=== PATIENT | male | born 1975 | race African-American/Black ===

== ENCOUNTER 2016-07-19 15:53 | Day surgery (SDC) | payer BC, MEDICAID ==
[~2016-07-19 15:53] MED LIST: BUPIVACAINE HCL 50 ML VIAL IJ ONE; RINGERS SOLUTION,LACTATED 1,000 ML IV PRN
--- OUTSIDE RECORDS SUMMARY | 2016-07-19 15:56 | XMS REPORT | Continuity of Care Document ---
:1975 Author Organization [facility] [place] [address] Care Team Providers Name Role Phone Unavailable Primary Care Provider Unavailable Source Comments This disclosure is being made pursuant to the [employer] program and maynot contain all information available regarding this patient.[facility] Active Allergies and Adverse Reactions Not on File Current Medications Be aware that medications may not be up to date as of this document. Alwaysverify current medications with the patient. Not on file Active Problems Not on file Social History Tobacco Use Types Packs/Day Years Used Date Never Assessed Plan of Care Health Maintenance Due Date Last Done Comments Retired-Pertussis Vaccine Adult 1995 Retired-Tetanus Vaccine Adult 1995 Retired-INFLUENZA VACCINE 12/21/2014 Results from Last 3 Months Not on file
[2016-07-19 16:11] VITALS: BP 132/94
[2016-07-19] MEDS ORDERED: RINGERS SOLUTION,LACTATED 1,000 ML IV ONE (16:35)
[2016-07-19] MEDS ORDERED: RINGERS SOLUTION,LACTATED 1,000 ML IV PRN (18:02)
--- NOTE | 2016-07-19 18:14 | OR ---
Operative Report - Dictated Report Narrative: OPERATIVE REPORT DATE OF OPERATION: 07/19/2016 PREOPERATIVE DIAGNOSIS: Thrombosed external hemorrhoid. Skin tag POSTOPERATIVE DIAGNOSIS: Large thrombosed external hemorrhoid right posterior quadrant. Healed fissure posterior midline with skin tag OPERATION: Incision and drainage of thrombosed external hemorrhoid. Excision of external skin tag SURGEON: Zenobia Combs MD ANESTHESIA: MAC/local Roberto Elkins CRNA INDICATIONS FOR PROCEDURE: The patient is a 41-year-old male presented to the [facility] emergency room with a thrombosed external hemorrhoid. There is no surgeon at that facility and he was referred here for treatment. FINDINGS: Large thrombosed external hemorrhoid in the right posterior quadrant. Evidence of healed posterior midline fissure with sentinel tag. NARRATIVE OF PROCEDURE: The patient was identified preoperatively and prior to the administration of anesthetic a multidisciplinary timeout was observed. With the patient in the right lateral position and after the administration of intravenous sedation the perianal area was prepped with Betadine and isolated with sterile towels. The thrombosed hemorrhoid was anesthetized with 0.5% Marcaine. A 1 cm skin incision was made and the clot was evacuated. The incision was then closed with 2 interrupted sutures of 2-0 chromic. There was evidence of a healed midline fissure with a sentinel skin tag. This was anesthetized with 0.5% Marcaine and amputated with the LigaSure device. A single suture of 2-0 chromic was used to reinforce the excision site. The operative procedure was terminated at this point. The patient tolerated the anesthetic and procedure well without complication. No specimen was submitted. All counts were correct. There was no measurable blood loss. The patient was transferred back to the regular floor for after-hours recovery awake and in stable condition. Reviewed and electronically signed
== END 2016-07-19 15:54 | disposition home or self-care (01) ==
LOC: AMB 15:53
PROVIDERS: ATTEND Surgery
PROC: 0DBQXZZ Excision of Anus, External Approach (ICD-10-PCS; 2016-07-19)
PROC: 0D9P3ZZ Drainage of Rectum, Percutaneous Approach (ICD-10-PCS; principal; 2016-07-19 16:30)
DX: K64.5 Perianal venous thrombosis (principal); K64.4 Residual hemorrhoidal skin tags; F17.200 Nicotine dependence, unspecified, uncomplicated; Z68.28 Body mass index [BMI] 28.0-28.9, adult